=== PATIENT | female | born 1955 | race American Indian/Alaskan Native ===

== ENCOUNTER 2017-03-10 12:46 | Outpatient (CLI) | payer BC ==
--- NOTE | 2017-03-10 13:37 | XRay Report ---
RIGHT WRIST FOUR VIEWS: 03/10/17 CLINICAL: Right wrist pain. FINDINGS: Moderate osteopenia. A tiny bone fragment on the dorsum of the wrist is consistent with a triquetral avulsion fracture. Deformity of the distal radius suggests a remote distal radius fracture. Mild radiocarpal joint space narrowing. The carpal bones are intact. Osteoarthritis at the basal joint of thumb. IMPRESSION: Triquetral avulsion fracture of uncertain age. Remote healed fractures of the distal radius and ulna. Osteoarthritis at the basal joint of the thumb.
== END 2017-03-10 12:47 | disposition home or self-care (01) ==
LOC: SPVIMAG 12:46
PROVIDERS: ATTEND Orthopaedic Surgery
DX: M19.041 Primary osteoarthritis, right hand (principal); M85.88 Other specified disorders of bone density and structure, other site; S52.501D Unspecified fracture of the lower end of right radius, subsequent encounter for closed fracture with routine healing; S52.601D Unspecified fracture of lower end of right ulna, subsequent encounter for closed fracture with routine healing; X58.XXXD Exposure to other specified factors, subsequent encounter